=== PATIENT | female | born 1965 | race African-American/Black ===

== ENCOUNTER 2020-09-18 09:58 | Outpatient (CLI) | payer MEDICARE, MEDICAID ==
[2020-09-18 18:20] LABS: SARS-CoV-2 PCR by NAA Not Detected (NotDetected)
== END 2020-09-18 09:59 | disposition home or self-care (01) ==
LOC: CSHLAB 09:58
PROVIDERS: ATTEND Internal Medicine Gastroenterology
DX: Z20.822 Contact with and (suspected) exposure to COVID-19 (principal); Z12.11 Encounter for screening for malignant neoplasm of colon
CPT/HCPCS: 87635; U0003; U0005